=== PATIENT | female | born 1960 | race African-American/Black ===

== ENCOUNTER 2016-12-19 13:14 | Emergency (ER) | payer BC ==
[~2016-12-19] VITALS: Ht 167.6 cm; Wt 76.0 kg
[~2016-12-19 13:14] MED LIST: ERYTOPOI BOTH EYES; HC1C30 TOP; NAPR-685 PO; NPH10OT BOTH EARS; NPH10OT LEFT EAR; OLAN5TAB5 PO
[2016-12-19 13:17] VITALS: Ht 167.6 cm; Wt 76.0 kg
[2016-12-19] MEDS ORDERED: OLANZAPINE (ODT) 5 MG TAB ODT STA (13:31)
[2016-12-19 14:40] LABS: HEMATOCRIT 45.5 % (37.0-47.0); HEMOGLOBIN 14.6 g/dl (12.0-16.0); MEAN CORPUSCULAR HEMOGLOBIN 27.6 pg (29.0-33.0); MEAN CORPUSCULAR HGB CONC 32.1 g/dl (32.0-37.0); MEAN CORPUSCULAR VOLUME 86.2 fl (82.0-101.0); MEAN PLATELET VOLUME 7.2 fl (7.4-10.4); PLATELET COUNT 296 10^3/UL (140-440); RED BLOOD COUNT 5.28 10^6/ul (4.20-5.40); RED CELL DISTRIBUTION WIDTH 15.5 % (11.5-14.5); UNCORRECTED WBC 4.9 10^3/ul (4.8-10.8); WHITE BLOOD COUNT 4.9 10^3/ul (4.8-10.8)
[2016-12-19 14:49] LABS: ALBUMIN 4.6 g/dl (3.3-4.9); CHLORIDE 102 mmol/L (97-110); SODIUM 143 mmol/L (135-144)
[2016-12-19 14:50] LABS: POTASSIUM 3.5 mmol/L (3.5-5.1)
[2016-12-19 14:52] LABS: ALANINE AMINOTRANSFERASE 38 IU/L (13-69); ALBUMIN/GLOBULIN RATIO 1.12; ALKALINE PHOSPHATASE 189 IU/L (42-121); ANION GAP 17 (8-16); ASPARTATE AMINO TRANSFERASE 39 IU/L (15-46); BILIRUBIN,INDIRECT 0.1 mg/dl (0-1.1); BILIRUBIN,TOTAL 0.1 mg/dl (0.2-1.3); BLOOD UREA NITROGEN 15 mg/dl (7-20); CALCIUM 9.5 mg/dl (8.4-10.2); CARBON DIOXIDE 28 mmol/L (21-31); GLUCOSE 74 mg/dl (70-220); TOTAL PROTEIN 8.7 g/dl (6.1-8.1)
[2016-12-19 14:53] LABS: ACETAMINOPHEN < 10.0 ug/ml (10.0-30.0); ETHANOL < 10.0 mg/dl; SALICYLATE < 1.0 mg/dl (5.0-30.0)
[2016-12-19 14:55] LABS: CONDITION 1; LH ANALYZER COMMENTS 1; SUSPECT 1
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
[2016-12-19 16:22] LABS: EOSINOPHILS # 0.1 10^3/ul (0.0-0.5); LYMPHOCYTES # 1.7 10^3/ul (0.8-2.9); MONOCYTE # 0.2 10^3/ul (0.3-0.9); NEUTROPHIL # 2.8 10^3/ul (1.6-7.5)
[2016-12-19 16:25] LABS: BURR CELLS 1+
--- NOTE | 2016-12-19 17:52 | ERA ---
ER Documentation Chief Complaint Date/Time DATE: 12/19/16 TIME: 17:44 Chief Complaint hallucinations of bugs crawling on eyes HPI Patient is a 56-year-old female with psychiatric disease who presents saying "I lived in a building with leaches and now they are in my eyes". Please note the history and physical exam is limited secondary to the patient's mental status. The patient says that she noticed this a few days ago. She said that she is out of her medications which is Zyprexa. She admits to suicidal ideation without a plan. She has no homicidal ideation. Upon review of old medical records she has multiple visits for various visits. ROS All systems reviewed and are negative except as per history of present illness. Medications Home Meds Active Scripts Olanzapine* (Zyprexa*) 5 Mg Tablet, 5 MG PO DAILY, #30 TAB Prov:LINDA WOODRUFF 09/29/16 Discontinued Scripts Naproxen* (Naproxen*) 375 Mg Tablet, 375 MG PO BID Y for PAIN, #20 TAB Prov:STEPHANY LANDRY PA-C 10/09/16 Erythromycin* (Erythromycin* Ophthalmic) 1 Applic Oint, 1 APPLIC BOTH EYES QID for 7 Days, #1 TUB Prov:STEPHANY LANDRY PA-C 10/09/16 Neomycin/Polymyxin/Hydrocort* (Cortisporin* Otic) 10 Ml Susp, 4 DROP BOTH EARS QID for 7 Days, EA Prov:STEPHANY LANDRY PA-C 10/09/16 Hydrocortisone* Topical (Hydrocortisone* Topical) 1%-28.35 Gm Cream..g., 1 APPLIC TOP Q6 Y for ITCHING for 5 Days, #1 TUB Prov:STEPHANY LANDRY PA-C 10/09/16 Neomycin/Polymyxin/Hydrocort* (Cortisporin* Otic) 10 Ml Susp, 4 DROP LEFT EAR QID for 7 Days, EA Prov:LINDA WOODRUFF 09/29/16 Allergies Allergies: Coded Allergies: No Known Drug Allergy (Verified Allergy, Mild, 09/29/16) PMhx/Soc History of Surgery: No Anesthesia Reaction: No Hx Neurological Disorder: No Hx Respiratory Disorders: No Hx Cardiac Disorders: No Hx Psychiatric Problems: No Hx Miscellaneous Medical Probl: Yes (hallucinations) Hx Alcohol Use: No Hx Substance Use: No Hx Tobacco Use: Yes Smoking Status: Current every day smoker FmHx Family History: No diabetes Physical Exam Vitals Vital Signs Date Time Temp Pulse Resp B/P Pulse Ox O2 Delivery O2 Flow Rate FiO2 12/19/16 16:14 91 18 168/84 98 Room Air 12/19/16 13:17 95.9 60 18 181/103 95 Physical Exam Const: Agitated Head: Atraumatic Eyes: Opacification of the left eye, redness to the conjunctival of the right eye ENT: Normal External Ears, Nose and Mouth. Neck: Full range of motion..~ No meningismus. Resp: Clear to auscultation bilaterally Cardio: Regular rate and rhythm, no murmurs Abd: Soft, non tender, non distended. Normal bowel sounds Skin: No petechiae or rashes Back: No midline or flank tenderness Ext: No cyanosis, or edema Neur: Awake but has flight of ideas Psych: Psychosis with suicidal ideation without plan Result Diagram: 12/19/16 1430 12/19/16 1430 Results 24 hrs Laboratory Tests Test 12/19/16 14:30 Acetaminophen Level < 10.0ug/ml Alanine Aminotransferase (ALT/SGPT) 38IU/L Albumin 4.6g/dl Albumin/Globulin Ratio 1.12 Alkaline Phosphatase 189IU/L Anion Gap 17 Aspartate Amino Transf (AST/SGOT) 39IU/L Basophils # 0.010^3/ul Basophils % 1.0% Blood Morphology Comment Blood Urea Nitrogen 15mg/dl Calcium Level 9.5mg/dl Carbon Dioxide Level 28mmol/L Chloride Level 102mmol/L Creatinine 0.50mg/dl Direct Bilirubin 0.00mg/dl Eosinophils # 0.110^3/ul Eosinophils % 2.0% Ethyl Alcohol Level < 10.0mg/dl Globulin 4.10g/dl Glucose Level 74mg/dl Hematocrit 45.5% Hemoglobin 14.6g/dl Indirect Bilirubin 0.1mg/dl Lymphocytes # 1.710^3/ul Lymphocytes % 35.0% Mean Corpuscular Hemoglobin 27.6pg Mean Corpuscular Hemoglobin Concent 32.1g/dl Mean Corpuscular Volume 86.2fl Mean Platelet Volume 7.2fl Monocytes # 0.210^3/ul Monocytes % 5.0% Neutrophils # 2.810^3/ul Neutrophils % 57.0% Platelet Count 49834^3/UL Potassium Level 3.5mmol/L Red Blood Count 5.2810^6/ul Red Cell Distribution Width 15.5% Salicylates Level < 1.0mg/dl Sodium Level 143mmol/L Total Bilirubin 0.1mg/dl Total Protein 8.7g/dl White Blood Count 4.910^3/ul Current Medications Medications (Trade) Dose Ordered Sig/Awais Route PRN Reason Start Time Stop Time Status Last Admin Dose Admin Olanzapine (Zyprexa Zydis) 10 mg ONCE STAT ODT 12/19/16 13:31 12/19/16 13:32 DC 12/19/16 14:06 Procedures/MDM Smoking Cessation Therapy: Pt. was lectured for greater than 3 minutes on the health risks of continued smoking and the benefits of cessation. Patient is a 56-year-old female with schizophrenia who presents with psychosis. She will require 5150 hold per psychiatry evaluation. She is medically clear. She is awaiting transfer at this time. I have given her 10 mg of Zyprexa ODT. She will need transfer for higher level of care for grave disability. Departure Diagnosis: Primary Impression: Psychosis Qualified Code: F29 - Psychosis, unspecified psychosis type Additional Impressions: Eye irritation Hallucinations Condition: KEVIN Noyola MD Dec 19, 2016 17:52
[2016-12-19] MEDS ORDERED: SULFACETAMIDE 10% 15 ML OPH BOTH EYES ONE (20:30)
[2016-12-19 21:01] LABS: ADD UMIC NO; URINE BILIRUBIN (Dip) NEGATIVE (NEGATIVE); URINE BLOOD (Dip) NEGATIVE (NEGATIVE); URINE COLOR LT. YELLOW (YELLOW); URINE GLUCOSE (Dip) NEGATIVE (NEGATIVE); URINE KETONES (Dip) NEGATIVE (NEGATIVE); URINE LEUKOCYTE ESTERASE (Dip) NEGATIVE (NEGATIVE); URINE NITRITE (Dip) NEGATIVE (NEGATIVE); URINE TOTAL PROTEIN (Dip) NEGATIVE (NEGATIVE); URINE UROBILINOGEN (Dip) 0.2 E.U./dL (0.1-1.0)
[2016-12-19 21:14] LABS: BARBITURATES Negative (NEGATIVE)
[2016-12-19 21:15] LABS: BENZODIAZEPINES Negative (NEGATIVE); CANNABINOIDS Negative (NEGATIVE)
[2016-12-19 21:16] LABS: COCAINE Negative (NEGATIVE); OPIATES Negative (NEGATIVE)
[2016-12-19] MEDS: OLANZAPINE (ODT) 5 MG TAB ODT SCH (21:36)
[2016-12-20 11:40] VITALS: TEMP 97.9
[2016-12-20] MEDS: OLANZAPINE (ODT) 5 MG TAB ODT SCH ×2 (11:46→21:00)
[2016-12-20 21:35] VITALS: BP 125/94; PULSE 92; RESP 18
== END 2016-12-20 21:36 | disposition short-term general hospital (02) ==
LOC: E/R 13:14
DX: F29 Unspecified psychosis not due to a substance or known physiological condition (principal); F17.210 Nicotine dependence, cigarettes, uncomplicated; H57.8 Other specified disorders of eye and adnexa
CPT/HCPCS: 80053; 80306; 80307; 81003; 85025; Z7610

== ENCOUNTER 2017-02-14 05:55 | Emergency (ER) | payer BC ==
[~2017-02-14] VITALS: Wt 78.0 kg
[~2017-02-14 05:55] MED LIST changes: -ERYTOPOI BOTH EYES; -HC1C30 TOP; -NAPR-685 PO; -NPH10OT BOTH EARS; -NPH10OT LEFT EAR
[2017-02-14 06:25] VITALS: BP 125/96; PULSE 94; RESP 18; TEMP 98
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
[2017-02-14 08:15] LABS: BENZODIAZEPINES Negative (NEGATIVE)
[2017-02-14 08:17] LABS: CANNABINOIDS Negative (NEGATIVE)
[2017-02-14 08:18] LABS: BARBITURATES Negative (NEGATIVE); COCAINE Negative (NEGATIVE)
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
[2017-02-14 08:36] LABS: OPIATES Negative (NEGATIVE)
[2017-02-14] MEDS ORDERED: ARIP10TA13 PO (08:51)
[2017-02-14] MEDS ORDERED: NAPR-260 PO (09:26)
[2017-02-15] MEDS ORDERED: ARIP10TA13 PO (11:30)
== END 2017-02-14 09:56 | disposition home or self-care (01) ==
LOC: E/R 05:55
DX: F22 Delusional disorders (principal); F17.210 Nicotine dependence, cigarettes, uncomplicated; R40.2142 Coma scale, eyes open, spontaneous, at arrival to emergency department; R40.2252 Coma scale, best verbal response, oriented, at arrival to emergency department; R40.2362 Coma scale, best motor response, obeys commands, at arrival to emergency department
CPT/HCPCS: 80307; Z7502; 99284

== ENCOUNTER 2017-02-15 05:07 | Emergency (ER) | payer BC ==
[~2017-02-15] VITALS: Ht 157.5 cm; Wt 76.5 kg
[~2017-02-15 05:07] MED LIST changes: +ARIP10TA13 PO; +NAPR-260 PO
[2017-02-15 05:53] VITALS: Ht 157.5 cm; Wt 76.5 kg
--- NOTE | 2017-02-15 11:27 | ERD ---
ER Documentation Chief Complaint Date/Time DATE: 02/15/17 TIME: 11:24 Chief Complaint C/O Bugs in her ear. Back pain and needs psych meds per verbatum. HPI 56-year-old female who presents the emergency room complaining of a bug in her right eye. The patient was seen here yesterday and evaluated by psychiatry. She was discharged on psychiatric medications. The patient states that she did not fill these medications because she could not find a pharmacy. The patient has the prescription. The patient still thinks that there is a bug in her right eye. She denies any pain or drainage. She denies any vision changes to the eye. The patient has chronic blindness to the left eye that is unchanged. She denies having bugs in her ears. ROS All systems reviewed and are negative except as per history of present illness. Medications Home Meds Active Scripts Naproxen* (Naprosyn*) 500 Mg Tablet, 500 MG PO BID Y for PAIN AND/OR INFLAMMATION, #12 TAB Prov:ASHLEY CORREIA MD 02/14/17 Aripiprazole* (Abilify*) 10 Mg Tablet, 10 MG PO DAILY, #30 TAB Prov:ASHLEY CORREIA MD 02/14/17 Olanzapine* (Zyprexa*) 5 Mg Tablet, 5 MG PO DAILY, #30 TAB Prov:LINDA WOODRUFF 09/29/16 Allergies Allergies: Coded Allergies: No Known Drug Allergy (Verified Allergy, Mild, 09/29/16) PMhx/Soc History of Surgery: No Anesthesia Reaction: No Hx Neurological Disorder: No Hx Respiratory Disorders: No Hx Cardiac Disorders: No Hx Psychiatric Problems: Yes (PSYCHOSIS) Hx Miscellaneous Medical Probl: Yes (hallucinations) Hx Alcohol Use: No Hx Substance Use: Yes Hx Tobacco Use: Yes Smoking Status: Unknown if ever smoked FmHx Family History: No diabetes Physical Exam Vitals Vital Signs Date Time Temp Pulse Resp B/P Pulse Ox O2 Delivery O2 Flow Rate FiO2 02/15/17 05:53 96.3 99 20 127/96 97 Physical Exam General: Well developed, well nourished, no acute distress Head: Normocephalic, atraumatic. Eyes: Left eye with opacification of the cornea that is consistent with baseline. Right eye is slightly more injected than yesterday but no evidence of foreign body with lid eversion. Patient has no significant fluorescein uptake. The extraocular movements are intact, no visual deficits, no field cuts. ENT: Moist mucous membranes Neck: Supple, no lymphadenopathy Respiratory: Lungs clear bilaterally, no distress Cardiovascular: RRR, no murmurs, rubs, or gallops Abdominal: Soft, non-tender, non-distended, no peritoneal signs : Deferred MSK: No edema, no unilateral swelling, 5/5 strength Neurologic: Alert and oriented, moving all extremities, normal speech, no focal weakness, no cerebellar signs Skin: No rash Psych: Delusions, slightly disorganized but at baseline, no suicidal thoughts Results 24 hrs Current Medications Medications (Trade) Dose Ordered Sig/Awais Route PRN Reason Start Time Stop Time Status Last Admin Dose Admin Fluorescein Sodium (Lexsk-D-Zigim) 1 strip ONCE ONCE RIGHT EYE 02/15/17 11:30 3 11:31 Erythromycin (Erythromycin Oph Oint) 1 applic ONCE ONCE RIGHT EYE 02/15/17 11:30 02/15/17 11:31 Procedures/MDM The patient continues to have delusions that are consistent with baseline. The patient just had a psychiatric evaluation less than 24 hours ago. She is still at her baseline. She does not warrant inpatient hospitalization. The patient was directed to the nurse pharmacy to fill prescription for Abilify. The patient will be given erythromycin ointment. The patient has significant irritation and injection secondary to her rubbing on her eye. She has no evidence of corneal abrasion. Empiric antibiotics would be appropriate given her continued delusion. The patient was advised to follow-up with primary care physician. At this time psychiatric evaluation is not warranted. The patient was given erythromycin ointment and discharge from the emergency room. Departure Diagnosis: Primary Impression: Conjunctivitis Conjunctivitis type: acute Acute conjunctivitis type: unspecified Laterality: right Qualified Code: H10.31 - Acute conjunctivitis of right eye , unspecified acute conjunctivitis type Additional Impression: Eye irritation Condition: Stable Patient Instructions: Conjunctivitis, Non-Specific Referrals: COMMUNITY CLINICS YOU HAVE RECEIVED A MEDICAL SCREENING EXAM AND THE RESULTS INDICATE THAT YOU DO NOT HAVE A CONDITION THAT REQUIRES URGENT TREATMENT IN THE EMERGENCY DEPARTMENT. FURTHER EVALUATION AND TREATMENT OF YOUR CONDITION CAN WAIT UNTIL YOU ARE SEEN IN YOUR DOCTORS OFFICE WITHIN THE NEXT 1-2 DAYS. IT IS YOUR RESPONSIBILITY TO MAKE AN APPOINTMENT FOR FOLOW-UP CARE. IF YOU HAVE A PRIMARY DOCTOR --you should call your primary doctor and schedule an appointment IF YOU DO NOT HAVE A PRIMARY DOCTOR YOU CAN CALL OUR PHYSICIAN REFERRAL HOTLINE AT IF YOU CAN NOT AFFORD TO SEE A PHYSICIAN YOU CAN CHOSE FROM THE FOLLOWING [facility] [address] [facility] [address] [facility] [address] [facility] [address] [facility] [address] [facility]. [facility] [address] [facility]. [facility] YOU HAVE RECEIVED A MEDICAL SCREENING EXAM AND THE RESULTS INDICATE THAT YOU DO NOT HAVE A CONDITION THAT REQUIRES URGENT TREATMENT IN THE EMERGENCY DEPARTMENT. FURTHER EVALUATION AND TREATMENT OF YOUR CONDITION CAN WAIT UNTIL YOU ARE SEEN IN YOUR DOCTORS OFFICE WITHIN THE NEXT 1-2 DAYS. IT IS YOUR RESPONSIBILITY TO MAKE AN APPOINTMENT FOR FOL- CARE. IF YOU HAVE A PRIMARY DOCTOR --you should call your primary doctor and schedule and appointment IF YOU DO NOT HAVE A PRIMARY DOCTOR YOU CAN CALL OUR PHYSICIAN REFERRAL HOTLINE AT . IF YOU CAN NOT AFFORD TO SEE A PHYSICIAN YOU CAN CHOSE FROM THE FOLLOWING [facility]: [facility] [address] [place] [address] [facility] [address] [place] [address] [facility] [address] [place] [address] [facility] Hours: Mon - Fri 9:00 AM - 5:00 PM Additional Instructions: Call your primary care doctor TOMORROW for an appointment during the next 1 WEEK.Tell the pathology secretary that you were referred from this facility.See the doctor sooner or return here if your condition worsens before your appointment time. ASHLEY CORREIA MD Feb 15, 2017 11:27
[2017-02-15] MEDS ORDERED: FLUORESCEIN STRIP RIGHT EYE ONE (11:30)
[2017-02-15] MEDS ORDERED: ARIP10TA13 PO (11:30)
[2017-02-15] MEDS ORDERED: ERYTHROMYCIN 1 GM OPH OINT RIGHT EYE ONE (11:30)
== END 2017-02-15 11:33 | disposition home or self-care (01) ==
LOC: E/R 05:07
DX: H10.31 Unspecified acute conjunctivitis, right eye (principal); F17.210 Nicotine dependence, cigarettes, uncomplicated
CPT/HCPCS: Z7502; Z7610; 99283

== ENCOUNTER 2017-03-14 16:27 | Emergency (ER) | payer BC ==
[~2017-03-14] VITALS: Ht 172.7 cm; Wt 81.8 kg
[2017-03-14 16:33] VITALS: Ht 172.7 cm; Wt 81.8 kg
--- NOTE | 2017-03-14 16:55 | ERD ---
ER Documentation Chief Complaint Date/Time DATE: 03/14/17 TIME: 16:50 Chief Complaint left eye irritation, "feels like something is inside" ROS All systems reviewed and are negative except as per history of present illness. Medications Home Meds Active Scripts Aripiprazole* (Abilify*) 10 Mg Tablet, 10 MG PO DAILY, #30 TAB Prov:ASHLEY CORREIA MD 02/15/17 Naproxen* (Naprosyn*) 500 Mg Tablet, 500 MG PO BID Y for PAIN AND/OR INFLAMMATION, #12 TAB Prov:ASHLEY CORREIA MD 02/14/17 Aripiprazole* (Abilify*) 10 Mg Tablet, 10 MG PO DAILY, #30 TAB Prov:ASHLEY CORREIA MD 02/14/17 Olanzapine* (Zyprexa*) 5 Mg Tablet, 5 MG PO DAILY, #30 TAB Prov:LINDA WOODRUFF 09/29/16 Allergies Allergies: Coded Allergies: No Known Drug Allergy (Verified Allergy, Mild, 09/29/16) PMhx/Soc History of Surgery: No Anesthesia Reaction: No Hx Neurological Disorder: No Hx Respiratory Disorders: No Hx Cardiac Disorders: No Hx Psychiatric Problems: Yes (PSYCHOSIS) Hx Miscellaneous Medical Probl: Yes (hallucinations) Hx Alcohol Use: No Hx Substance Use: Yes Hx Tobacco Use: Yes Physical Exam Vitals Vital Signs Date Time Temp Pulse Resp B/P Pulse Ox O2 Delivery O2 Flow Rate FiO2 03/14/17 16:33 98.2 80 18 134/67 96 Physical Exam Const: [] Head: Atraumatic Eyes: Normal Conjunctiva ENT: Normal External Ears, Nose and Mouth. Neck: Full range of motion..~ No meningismus. Resp: Clear to auscultation bilaterally Cardio: Regular rate and rhythm, no murmurs Abd: Soft, non tender, non distended. Normal bowel sounds Skin: No petechiae or rashes Back: No midline or flank tenderness Ext: No cyanosis, or edema Neur: Awake and alert Psych: Normal Mood and Affect DALTONSYHAM Mar 14, 2017 16:55 Hx Miscellaneous Medical Probl: Yes (hallucinations) Hx Alcohol Use: No Hx Substance Use: Yes Hx Tobacco Use: Yes Physical Exam Vitals Vital Signs Date Time Temp Pulse Resp B/P Pulse Ox O2 Delivery O2 Flow Rate FiO2 03/14/17 16:33 98.2 80 18 134/67 96 Physical Exam Const: [] Head: Atraumatic Eyes: Normal Conjunctiva ENT: Normal External Ears, Nose and Mouth. Neck: Full range of motion..~ No meningismus. Resp: Clear to auscultation bilaterally Cardio: Regular rate and rhythm, no murmurs Abd: Soft, non tender, non distended. Normal bowel sounds Skin: No petechiae or rashes Back: No midline or flank tenderness Ext: No cyanosis, or edema Neur: Awake and alert Psych: Normal Mood and Affect SHYAM HOFFMAN Mar 14, 2017 16:55
[2017-03-14] MEDS ORDERED: CEPH-443 PO (18:24)
--- NOTE | 2017-03-14 18:34 | ERD ---
ER Documentation Chief Complaint Date/Time DATE: 03/14/17 TIME: 18:29 Chief Complaint Left ear irritation HPI This a 56-year-old who is complaining of some ball in her left outer ear she states she had a small pimple there and she picked at it now she has a fluid collection she feels like something is coming out of her ear ROS All systems reviewed and are negative except as per history of present illness. Medications Home Meds Active Scripts Cephalexin* (Keflex*) 500 Mg Capsule, 500 MG PO QID for 5 Days, CAP Prov:RICHARD ORTEGA DO 03/14/17 Aripiprazole* (Abilify*) 10 Mg Tablet, 10 MG PO DAILY, #30 TAB Prov:ASHLEY CORREIA MD 02/15/17 Naproxen* (Naprosyn*) 500 Mg Tablet, 500 MG PO BID Y for PAIN AND/OR INFLAMMATION, #12 TAB Prov:ASHLEY CORREIA MD 02/14/17 Olanzapine* (Zyprexa*) 5 Mg Tablet, 5 MG PO DAILY, #30 TAB Prov:LINDA WOODRUFF 09/29/16 Discontinued Scripts Aripiprazole* (Abilify*) 10 Mg Tablet, 10 MG PO DAILY, #30 TAB Prov:ASHLEY CORREIA MD 02/14/17 Allergies Allergies: Coded Allergies: No Known Drug Allergy (Verified Allergy, Mild, 09/29/16) PMhx/Soc History of Surgery: No Anesthesia Reaction: No Hx Neurological Disorder: No Hx Respiratory Disorders: No Hx Cardiac Disorders: No Hx Psychiatric Problems: Yes (PSYCHOSIS) Hx Miscellaneous Medical Probl: Yes (hallucinations) Hx Alcohol Use: No Hx Substance Use: Yes Hx Tobacco Use: Yes FmHx Family History: No coronary disease Physical Exam Vitals Vital Signs Date Time Temp Pulse Resp B/P Pulse Ox O2 Delivery O2 Flow Rate FiO2 03/14/17 16:33 98.2 80 18 134/67 96 Physical Exam Const: Well-developed, well-nourished Head: Atraumatic, normocephalic Eyes: Normal Conjunctiva, PERRLA, EOMI, normal sclera, no nystagmus ENT: Left ear has a very small fluctuant area of tissue in the inner medial pinna no erythema no drainage no induration external Ears, Nose and Mouth , moist mucus membranes. Neck: Full range of motion. No meningismus, no lymphadenopathy. Resp: Clear to auscultation bilaterally, no wheezing, rhonchi, rales Cardio: Regular rate and rhythm, no murmurs, S1 S2 present Abd: Soft, non tender x 4, non distended. Normal bowel sounds, no guarding or rebound, no pulsitile abdominal masses or bruits Skin: No petechiae or rashes, no ecchymosis , no maculopapular rash Back: No midline or flank tenderness Ext: No cyanosis, or edema, FROM x 4, normal inspection, neurovascularly intact x 4 Neur: Awake and alert, STR 5/5 x 4, sensation intact x 4, no focal findings, cerebellum intact Psych: Normal Mood and Affect Procedures/MDM Abscess Incision and Drainage with irrigation by me: Location: Left ear Anesthesia: none Technique: Needle aspiration of the 20-gauge needle. 1 cc of serosanguineous fluid was returned with complete resolution of the fullness Packing: None Complications: Neurovascularly intact post procedure 48 hour wound check. Scar minimization instructions given. Patient's skin symptoms have stabilized while they have been evaluated in the department and are appropriate for outpatient care and work up. Exam and w/u not consistent w/ sepsis, deep space infection, or foreign body. Departure Diagnosis: Primary Impression: Abscess Condition: Stable Patient Instructions: Abscess Drainage RICHARD ORTEGA DO Mar 14, 2017 18:34
[2017-03-14 18:40] VITALS: BP 160/90; PULSE 99; RESP 18; TEMP 98
== END 2017-03-14 18:40 | disposition home or self-care (01) ==
LOC: E/R 16:27
DX: H60.02 Abscess of left external ear (principal); F17.210 Nicotine dependence, cigarettes, uncomplicated

== ENCOUNTER 2017-11-19 18:15 | Emergency (ER) | payer BC ==
[~2017-11-19] VITALS: Wt 109.1 kg
[~2017-11-19 18:15] MED LIST changes: +CEPH-443 PO
[2017-11-19] MEDS ORDERED: QUET300T5 PO (19:57)
--- NOTE | 2017-11-19 20:11 | ERD ---
ER Documentation Chief Complaint Chief Complaint ANXIETY/BODYACHE/HEADACHE-BIB RA90 HPI This is a 57-year-old -[place] female with a known history of schizophrenia that presents to the emergency department stating she is feeling very anxious and no longer has a desire to live. She states she does not have a plan as to how she wants to kill herself but indicates she has been admitted to [facility] recently for suicidal ideations. The patient indicates she has been noncompliant with antipsychotic medication. She indicates she also has been experiencing tactile hallucinations and she states she feels a spider in her left eye that is trying to "eat her eyeball out." She denies any recent remote blunt or penetrating head chest or abdominal trauma. Contrary to the triage note the patient denies a headache or generalized myalgias. ROS All systems reviewed and are negative except as per history of present illness. Medications Home Meds Reported Medications Quetiapine Fumarate* (Seroquel* XR) 300 Mg Tab.sr.24h, 300 MG PO BID, #30 TAB 11/19/17 Discontinued Scripts Cephalexin* (Keflex*) 500 Mg Capsule, 500 MG PO QID for 5 Days, CAP Prov:RICHARD ORTEGA DO 03/14/17 Aripiprazole* (Abilify*) 10 Mg Tablet, 10 MG PO DAILY, #30 TAB Prov:ASHLEY CORREIA MD 02/15/17 Naproxen* (Naprosyn*) 500 Mg Tablet, 500 MG PO BID Y for PAIN AND/OR INFLAMMATION, #12 TAB Prov:ASHLEY CORREIA MD 02/14/17 Olanzapine* (Zyprexa*) 5 Mg Tablet, 5 MG PO DAILY, #30 TAB Prov:LINDA WOODRUFF 09/29/16 Allergies Allergies: Coded Allergies: No Known Drug Allergy (Verified Allergy, Mild, 09/29/16) PMhx/Soc Medical and Surgical Hx: pt denies Surgical Hx History of Surgery: No Anesthesia Reaction: No Hx Neurological Disorder: No Hx Respiratory Disorders: No Hx Cardiac Disorders: No Hx Psychiatric Problems: Yes (PSYCHOSIS, schizophrenic ) Hx Miscellaneous Medical Probl: Yes (hallucinations) Hx Alcohol Use: No Hx Substance Use: Yes Hx Tobacco Use: Yes Smoking Status: Current every day smoker Physical Exam Vitals Vital Signs Date Time Temp Pulse Resp B/P Pulse Ox O2 Delivery O2 Flow Rate FiO2 11/19/17 18:26 98.3 103 20 136/73 98 Physical Exam Constitutional:Well-developed. Well-nourished. HEENT:Normocephalic. Atraumatic. Right pupil was reactive to light and 3 mm. Left pupil had corneal clouding. Moist mucous membranes.No tonsillar exudates. Neck: No nuchal rigidity. No lymphadenopathy. No posterior cervical spine tenderness or step-offs. Respiratory: Not using accessory muscles of respiration.Lungs were clear to auscultation bilaterally. No rhonchi. No rales. No wheezing. Cardiovascular: Regular rate regular rhythm.No murmurs. No rubs were appreciated.S1, S2 normal. Distal pulses are palpable 2+ bilaterally. GI: Abdomen was soft. Nontender. Non Distended. No pulsatile abdominal masses or bruits. No rebound. No guarding. Bowel sounds were present and normal. Muscle skeletal: Full range of motion of both the upper and lower extremities bilaterally.Normal muscle tone.No assymetrical calf tenderness or swelling. Skin: No petechia, no purpura. No lesions on the palms or the soles of the feet. No maculopapular rash. NEURO: Patient was alert, awake, orientated x3.No facial droop. Gait observed and normal with no ataxia.Speech had regular rate and rhythm. No focal neurological deficits. She was acutely psychotic experiencing tactile hallucinations and had suicidal thoughts and ideations with no homicidal thoughts or ideation Procedures/MDM This patient presented to the emergency department with acute psychosis and my differential diagnosis included but was not limited to ruling out life threatening causes of acute psychosis such as Wernickes encephalopathy, hypoxia , hypoglycemia, hypertensive encephalopathy, intracerebral hemorrhage, meningitis, poisoning. After my evaluation and workup on the patient I was able to exclude medical and reversible causes of the patients psychosis. It was my clinical impression the patients symptoms were an exacerbation of his psychiatric disorder; therefore, the patient was medically cleared by myself at this time for psychiatric evaluation and possible transfer. Departure Diagnosis: Primary Impression: Suicidal ideation Condition: Serious STEPHAN HOUSER Nov 19, 2017 20:11
[2017-11-19 20:18] LABS: BASOPHILS % 0.4 % (0.0-2.0); HEMATOCRIT 40.7 % (37.0-47.0); HEMOGLOBIN 13.1 g/dl (12.0-16.0); LYMPHOCYTES % 18.6 % (15.0-51.0); MEAN CORPUSCULAR HEMOGLOBIN 27.6 pg (29.0-33.0); MEAN CORPUSCULAR HGB CONC 32.2 g/dl (32.0-37.0); MEAN CORPUSCULAR VOLUME 85.7 fl (82.0-101.0); MEAN PLATELET VOLUME 9.3 fl (7.4-10.4); MONOCYTE # 0.3 10^3/ul (0.3-0.9); MONOCYTES % 6.1 % (0.0-11.0); NEUTROPHILS % 74.7 % (39.0-77.0); PLATELET COUNT 236 10^3/UL (140-415); RED BLOOD COUNT 4.75 10^6/ul (4.20-5.40); RED CELL DISTRIBUTION WIDTH 14.6 % (11.5-14.5); WHITE BLOOD COUNT 5.4 10^3/ul (4.8-10.8)
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
[2017-11-19 20:36] LABS: ALANINE AMINOTRANSFERASE 42 IU/L (13-69); ALBUMIN 4.2 g/dl (3.3-4.9); ALBUMIN/GLOBULIN RATIO 1.23; ALKALINE PHOSPHATASE 119 IU/L (42-121); ANION GAP 21 (8-16); ASPARTATE AMINO TRANSFERASE 37 IU/L (15-46); BILIRUBIN,INDIRECT 0.4 mg/dl (0-1.1); BILIRUBIN,TOTAL 0.4 mg/dl (0.2-1.3); BLOOD UREA NITROGEN 13 mg/dl (7-20); CALCIUM 9.5 mg/dl (8.4-10.2); CARBON DIOXIDE 19 mmol/L (21-31); CHLORIDE 104 mmol/L (97-110); CREATININE 0.68 mg/dl (0.44-1.00); GLUCOSE 64 mg/dl (70-220); SODIUM 140 mmol/L (135-144); TOTAL PROTEIN 7.6 g/dl (6.1-8.1)
[2017-11-19 20:37] LABS: ACETAMINOPHEN < 10.0 ug/ml (10.0-30.0); SALICYLATE < 1.0 mg/dl (5.0-30.0)
[2017-11-19 22:49] VITALS: TEMP 98.3
[2017-11-20 06:00] VITALS: BP 105/60; PULSE 80; RESP 18
--- NOTE | 2017-11-20 06:35 | QN ---
Documentation Comment Indication: Gravely disable Duration: 4 hr Family History: As documented in the original HPI The patient was observed with serial exams over the above timeframe. The patient continued to be well-appearing and observation continued without complication. All other needs have been met during emergency department stay. Routine psychiatric medications ordered: Yes, see EMR Hold status: Telemetry medicine psychiatry recommended voluntary [id number] hold Placement status: Pending MARCIA BRANNON MD Nov 20, 2017 06:35
[2017-11-20] MEDS ORDERED: ESCITALOPRAM 10 MG TAB PO SCH (09:00)
[2017-11-20] MEDS ORDERED: QUETIAPINE 25 MG TAB PO SCH (21:00)
== END 2017-11-20 15:47 ==
LOC: E/R 18:15
DX: R45.851 Suicidal ideations (principal); R40.2242 Coma scale, best verbal response, confused conversation, at arrival to emergency department; F17.210 Nicotine dependence, cigarettes, uncomplicated; R40.2142 Coma scale, eyes open, spontaneous, at arrival to emergency department; R40.2362 Coma scale, best motor response, obeys commands, at arrival to emergency department
CPT/HCPCS: 36415; 80053; 80162; 80306; 85025; 99285; Z7610

== ENCOUNTER 2018-03-03 00:13 | Emergency (ER) | END 2018-03-03 01:41 | disposition home or self-care (01) ==

== ENCOUNTER 2018-03-03 06:15 | Emergency (ER) | END 2018-03-03 10:56 | disposition home or self-care (01) ==

== ENCOUNTER 2018-03-13 10:52 | Emergency (ER) | END 2018-03-13 18:38 | disposition home or self-care (01) ==

== ENCOUNTER 2018-03-23 16:50 | Emergency (ER) | END 2018-03-24 04:54 ==